=== PATIENT | male | born 1955 | race Caucasian/White ===

== ENCOUNTER → 2017-01-18 | Outpatient (CLI) | payer BC | LOC: MW.CHRC 15:20 | PROVIDERS: ATTEND Family Medicine | DX: Z00.00 Encounter for general adult medical examination without abnormal findings (principal) | CPT/HCPCS: 87070; 87077; 87186; 93005 ==

== ENCOUNTER 2017-02-11 16:41 | Emergency (ER) | payer BC ==
[2017-02-11] MEDS ORDERED: Sodium Chloride 0.9% 10 ML Syringe FLUSH PRN (17:04)
[2017-02-11] MEDS ORDERED: Sodium Chloride 0.9% 2.5 ML Syringe FLUSH PRN (17:04)
--- NOTE | 2017-02-11 17:18 | EDM.PDOC ---
ED HISTORY OF PRESENT ILLNESS - General Chief Complaint: Respiratory Problem Stated Complaint: SHORTNESS OF BREATH Time Seen by Provider: 02/11/17 17:07 - History of Present Illness INITIAL COMMENTS - FREE TEXT/NARRATIVE: HISTORY AND PHYSICAL: History of present illness: Patient's 61-year-old white male with an extensive past medical history including prior CVA coronary bypass graft who presents with concern of shortness of breath weakness and near syncope this is been worse over last several days he's been on and off several diuretics and had these recently increased and has a scheduled appointment with cardiology tomorrow this episode today was shortness of breath with near syncope while at home without associated chest pain nausea vomiting or other complaints Review of systems: As per history of present illness and below otherwise all systems reviewed and negative. Past medical history: As per history of present illness and as reviewed below otherwise noncontributory. Surgical history: As per history of present illness and as reviewed below otherwise noncontributory. Social history: No reported history of drug or alcohol abuse. Family history: As per history of present illness and as reviewed below otherwise noncontributory. Physical exam: HEENT: Atraumatic, normocephalic, pupils reactive, mild conjunctival pallor without scleral icterus, mucous membranes moist, throat clear, neck supple, nontender, trachea midline. Lungs: Basilar crackles, breath sounds equal bilaterally, chest nontender. Heart: S1S2, regular, negative for clicks, rubs, or JVD. Abdomen: Soft, nondistended, nontender. Negative for masses or hepatosplenomegaly. Negative for costovertebral tenderness. Pelvis: Stable nontender. Genitourinary: Deferred. Rectal: Deferred. Extremities: Atraumatic, negative for cords or calf pain. Neurovascular unremarkable. 2-3+ peripheral edema inferiorly Neuro: Awake, alert, oriented. Cranial nerves II through XII unremarkable. Cerebellum unremarkable. Motor and sensory unremarkable throughout. Exam nonfocal. Diagnostics: CBC CMP PT/INR troponin BNP EKG chest x-ray CT brain Therapeutics: IV O2 monitor Impression: #1 dyspnea #2 history coronary bypass graft #3 history of CVA #4 near syncope Definitive disposition and diagnosis as appropriate pending reevaluation and review of above. - Related Data Allergies/ADRs: Allergies Allergy/AdvReac Type Severity Reaction Status Date / Time No Known Allergies Allergy Verified 02/11/17 17:23 Home Meds: Home Meds Lisinopril [Prinivil] 10 mg PO DAILY 30 Days 12/14/16 [Rx] Rosuvastatin [Crestor] 10 mg PO BEDTIME 30 Days 12/14/16 [Rx] Amiodarone [Cordarone] 400 mg PO DAILY 02/11/17 [History] Furosemide 40 mg PO DAILY 02/11/17 [History] Metoprolol Tartrate 12.5 mg PO DAILY 02/11/17 [History] Mirtazapine 15 mg PO BEDTIME 02/11/17 [History] NIFEdipine [Nifedipine ER] 60 mg PO ACBREAKFAST 02/11/17 [History] Rivaroxaban [Xarelto] 20 mg PO DAILY 02/11/17 [History] Past Medical History HEENT History: Reports: Other (see below) Other HEENT History: Pt reports "my eye exploded roughly 1yr ago." Cardiovascular History: Reports: Hypertension - Infectious Disease History Infectious Disease History: Reports: None - Past Surgical History HEENT Surgical History: Reports: None Cardiovascular Surgical History: Reports: None Social & Family History - Family History Family Medical History: Noncontributory HEENT: Reports: None Cardiac: Reports: [place] Respiratory: Reports: None GI: Reports: None : Reports: None OBGYN: Reports: None Musculoskeletal: Reports: None Neurological: Reports: None Psychiatric: Reports: None Endocrine/Metabolic: Reports: None Hematologic: Reports: None Immunologic: Reports: None Dermatologic: Reports: None Oncologic: Reports: None - Tobacco Use Smoking Status *Q: Never Smoker Second Hand Smoke Exposure: No - Caffeine Use Caffeine Use: Reports: Soda - Recreational Drug Use Recreational Drug Use: No ED ROS GENERAL - Review of Systems Review Of Systems: ROS reveals no pertinent complaints other than HPI. ED EXAM, GENERAL - Physical Exam Exam: See Below (See dictation) Course - Vital Signs Last Recorded V/S: Last Vital Signs Temp 36.3 C 02/11/17 17:00 Pulse 83 02/11/17 17:00 Resp 18 02/11/17 17:00 BP 114/64 02/11/17 17:00 Pulse Ox 97 02/11/17 17:00 - Orders/Labs/Meds Orders: Active Orders 24 hr Category Date Time Status EKG Documentation Completion [RC] STAT Care 02/11/17 17:04 Active Chest 1V Frontal [CR] Stat Exams 02/11/17 17:04 Taken Head wo Cont [CT] Stat Exams 02/11/17 17:13 Taken TYPE AND SCREEN [BBK] Stat Lab 02/11/17 17:45 Received Sodium Chloride 0.9% [Saline Flush] Med 02/11/17 17:04 Active 10 ml FLUSH ASDIRECTED PRN Sodium Chloride 0.9% [Saline Flush] Med 02/11/17 17:04 Active 2.5 ml FLUSH ASDIRECTED PRN Saline Lock Insert [OM.PC] Stat Oth 02/11/17 17:04 Ordered Medication Orders Sodium Chloride (Saline Flush) 10 ml FLUSH ASDIRECTED PRN PRN Reason: Keep Vein Open Sodium Chloride (Saline Flush) 2.5 ml FLUSH ASDIRECTED PRN PRN Reason: Keep Vein Open Labs: Laboratory Tests 02/11/17 02/11/17 02/11/17 Range/Units 17:45 17:45 17:45 WBC 12.87 H (4.0-11.0) K/uL RBC 4.00 L (4.50-5.90) M/uL Hgb 11.3 L (13.0-17.0) g/dL Hct 35.3 L (38.0-50.0) % MCV 88.3 (80.0-98.0) fL MCH 28.3 (27.0-32.0) pg MCHC 32.0 (31.0-37.0) g/dL RDW Std Deviation 51.7 (28.0-62.0) fl RDW Coeff of Tosha 17 H (11.0-15.0) % Plt Count 244 (150-400) K/uL MPV 10.80 (7.40-12.00) fL Neut % (Auto) 79.3 (48.0-80.0) % Lymph % (Auto) 15.8 L (16.0-40.0) % Turner % (Auto) 4.5 (0.0-15.0) % Eos % (Auto) 0.2 (0.0-7.0) % Baso % (Auto) 0.2 (0.0-1.5) % Neut # (Auto) 10.2 H (1.4-5.7) K/uL Lymph # (Auto) 2.0 (0.6-2.4) K/uL Turner # (Auto) 0.6 (0.0-0.8) K/uL Eos # (Auto) 0.0 (0.0-0.7) K/uL Baso # (Auto) 0.0 (0.0-0.1) K/uL Nucleated RBC % 0.0 /100WBC Nucleated RBCs # 0 K/uL INR 1.84 H (0.86-1.11) Sodium 145 (136-146) mmol/L Potassium 4.1 (3.5-5.1) mmol/L Chloride 109 (98-110) mmol/L Carbon Dioxide 22 (21-31) mmol/L BUN 23 (6.0-23.0) mg/dL Creatinine 2.1 H (0.6-1.5) mg/dL Est Cr Clr Drug Dosing 39.84 mL/min Estimated GFR (MDRD) 32.4 ml/min Glucose 151 H (60-110) mg/dL Calcium 9.3 (8.8-10.8) mg/dL Total Bilirubin 0.7 (0.1-1.5) mg/dL AST 15 (5-40) IU/L ALT 24 (8-54) IU/L Alkaline Phosphatase 82 (40-150) Troponin I (0.0-0.29) NG/ML B-Natriuretic Peptide (<100) PG/ML Total Protein 7.2 (6.0-8.0) g/dL Albumin 3.8 (3.4-4.8) g/dL Globulin 3.4 (2.0-3.5) g/dL Albumin/Globulin Ratio 1.1 L (1.3-2.8) 02/11/17 02/11/17 Range/Units 17:45 17:45 WBC (4.0-11.0) K/uL RBC (4.50-5.90) M/uL Hgb (13.0-17.0) g/dL Hct (38.0-50.0) % MCV (80.0-98.0) fL MCH (27.0-32.0) pg MCHC (31.0-37.0) g/dL RDW Std Deviation (28.0-62.0) fl RDW Coeff of Tosha (11.0-15.0) % Plt Count (150-400) K/uL MPV (7.40-12.00) fL Neut % (Auto) (48.0-80.0) % Lymph % (Auto) (16.0-40.0) % Turner % (Auto) (0.0-15.0) % Eos % (Auto) (0.0-7.0) % Baso % (Auto) (0.0-1.5) % Neut # (Auto) (1.4-5.7) K/uL Lymph # (Auto) (0.6-2.4) K/uL Turner # (Auto) (0.0-0.8) K/uL Eos # (Auto) (0.0-0.7) K/uL Baso # (Auto) (0.0-0.1) K/uL Nucleated RBC % /100WBC Nucleated RBCs # K/uL INR (0.86-1.11) Sodium (136-146) mmol/L Potassium (3.5-5.1) mmol/L Chloride (98-110) mmol/L Carbon Dioxide (21-31) mmol/L BUN (6.0-23.0) mg/dL Creatinine (0.6-1.5) mg/dL Est Cr Clr Drug Dosing mL/min Estimated GFR (MDRD) ml/min Glucose (60-110) mg/dL Calcium (8.8-10.8) mg/dL Total Bilirubin (0.1-1.5) mg/dL AST (5-40) IU/L ALT (8-54) IU/L Alkaline Phosphatase (40-150) Troponin I < 0.10 (0.0-0.29) NG/ML B-Natriuretic Peptide 552 H (<100) PG/ML Total Protein (6.0-8.0) g/dL Albumin (3.4-4.8) g/dL Globulin (2.0-3.5) g/dL Albumin/Globulin Ratio (1.3-2.8) Meds: Medications Generic Name Dose Route Start Last Admin Trade Name Freq PRN Reason Stop Dose Admin Sodium Chloride 10 ml 02/11/17 17:04 Saline Flush FLUSH ASDIRECTED PRN Keep Vein Open Sodium Chloride 2.5 ml 02/11/17 17:04 Saline Flush FLUSH ASDIRECTED PRN Keep Vein Open Departure - Departure Time of Disposition: 19:04 Disposition: DC/Tfer to Acute Hospital 02 Condition: fair Clinical Impression: Dyspnea, CVA (cerebral vascular accident), Near syncope Forms: ED Department Discharge - My Orders Last 24 Hours: My Active Orders 02/11/17 17:04 EKG Documentation Completion [RC] STAT Chest 1V Frontal [CR] Stat Sodium Chloride 0.9% [Saline Flush] 10 ml FLUSH ASDIRECTED PRN Sodium Chloride 0.9% [Saline Flush] 2.5 ml FLUSH ASDIRECTED PRN Saline Lock Insert [OM.PC] Stat 02/11/17 17:13 Head wo Cont [CT] Stat 02/11/17 17:45 TYPE AND SCREEN [BBK] Stat - Assessment/Plan Last 24 Hours: My Active Orders 02/11/17 17:04 EKG Documentation Completion [RC] STAT Chest 1V Frontal [CR] Stat Sodium Chloride 0.9% [Saline Flush] 10 ml FLUSH ASDIRECTED PRN Sodium Chloride 0.9% [Saline Flush] 2.5 ml FLUSH ASDIRECTED PRN Saline Lock Insert [OM.PC] Stat 02/11/17 17:13 Head wo Cont [CT] Stat 02/11/17 17:45 TYPE AND SCREEN [BBK] Stat
[2017-02-11] MEDS ORDERED: Furosemide 40 MG/4 ML VIAL IVPUSH ONE (19:05)
[2017-02-11] MEDS ORDERED: Sodium Chloride 0.9% 500 ML IV STA (20:03)
--- NOTE | 2017-02-12 14:56 | CT ---
EXAM DATE: 02/11/17 PATIENT'S AGE: 61 Patient: LILIAN HAUSER Facility: [place], [place] Site . Site : 1955 Study: CT Head [id number]/30/2017 6:17:23 PM Ordering Physician: Riccardo Luciano Final Report: INDICATION: Near syncope TECHNIQUE: CT head without contrast. COMPARISON: 12/11/2016 FINDINGS: The ventricles and sulci are stable. There is no mass effect or midline shift. Chronic lacunar infarcts are again seen. There is a left frontal parrish radiata ovoid hypodensity which was not seen on the prior study, suggestive of an evolving lacunar infarct. Small ill-defined centrum semiovale hypodensities could represent chronic small-vessel ischemic changes. There is no loss of willis- white differentiation. There is no evidence of an acute intracranial hemorrhage. No acute calvarial fracture is seen. The visualized paranasal sinuses and mastoid air cells are clear. The visualized orbits are within normal limits. IMPRESSION: An apparently evolving left frontal parrish radiata lacunar infarct. Multiple additional chronic lacunar infarcts again seen. Subtle centrum semiovale hypodensities could represent chronic small-vessel ischemic changes. If indicated, consider MRI. The findings were discussed with Dr. Gu, by phone, 02/11/2017 at 6:40 p.m.. Dictated by Luis Box MD @ 02/11/2017 6:43:06 PM Dictated by: Luis Box MD @ 02/11/2017 18:43:10 (Electronic Signature) Report Signed by Proxy and Original Signed Document filed in the Medical Record. [facility]
--- NOTE | 2017-02-12 14:59 | CR ---
EXAM DATE: 02/11/17 PATIENT'S AGE: 61 Patient: LILIAN HAUSER Facility: [place], [place] Site . Site : 1955 Study: XRay Chest [id number] 6:22:09 PM Ordering Physician: Riccardo Luciano Final Report: Indication: Shortness of breath. Technique: One view. Comparison: None. Findings: Massive prominence of the cardiac silhouette. Left hemidiaphragm is obscured. Pulmonary vascularity is normal. Right lung is clear. Visualized left lung is clear. Central soft tissue density behind the heart. Impression: Massive cardiomegaly or pericardial effusion. Presumed left pleural effusion. Likely some left atelectasis. Small retrocardiac density likely a hiatus hernia. Two-view chest recommended for further characterization or CT. Dictated by Evangelist Covington MD @ Feb 11 2017 6:56PM (Electronic Signature) Report Signed by Proxy and Original Signed Document filed in the Medical Record. [facility]
[2017-02-12 19:27] VITALS: BP 82/57
== END 2017-02-11 20:25 ==
LOC: MW.ED 16:41
DX: R06.00 Dyspnea, unspecified (principal); R55 Syncope and collapse; I10 Essential (primary) hypertension; Z86.73 Personal history of transient ischemic attack (TIA), and cerebral infarction without residual deficits; Z79.899 Other long term (current) drug therapy
CPT/HCPCS: 36415; 70450; 71010; 80053; 83880; 84484; 85025; 85610; 86850; 86900; 86901; 93005; 96374; 99285; J1940; J7040; 99284

== ENCOUNTER 2017-03-03 16:33 | Emergency (ER) | payer BC ==
[2017-03-03] MEDS ORDERED: HYDROmorphone 2 MG/ML Syringe IVPUSH ONE (16:55)
[2017-03-03] MEDS ORDERED: Sodium Chloride 0.9% 2.5 ML Syringe FLUSH PRN (16:55)
[2017-03-03] MEDS ORDERED: Sodium Chloride 0.9% 10 ML Syringe FLUSH PRN (16:55)
[2017-03-03] MEDS ORDERED: Ondansetron 4 MG/2 ML SDV IVPUSH ONE (16:55)
--- NOTE | 2017-03-03 17:03 | EDM.PDOC ---
ED HPI GENERAL MEDICAL PROBLEM - General Chief Complaint: Abdominal Pain Stated Complaint: HERNIA/RUPTURED Time Seen by Provider: 03/03/17 16:47 - History of Present Illness INITIAL COMMENTS - FREE TEXT/NARRATIVE: HISTORY AND PHYSICAL: History of present illness: The patient is a 61 year-old male with a history of TIAs and strokes who is currently on Coumadin and had an [place] without stent and treated at [facility] for all these problems who presents with a 10 year history of an umbilical hernia which sits at the umbilicus and slightly above which goes in and out over the last 10 years. Patient states that he does not come out every day he comes in periodically and usually lays down and is able to maneuver back into place. He never had the area repaired and does not have a particular reason why it has not been repaired. The patient states that earlier this morning his hernia came out again and he had some difficulty getting it back in but he was able to do so. It came out a second time and he presents to the ED because he was unable to get it back. Patient has not had any fevers chills vomiting diarrhea chest pain or shortness of breath and only has pain around the hernial site. The remainder the abdomen is without pain. The patient states he fell off for longitudinal that contributed to it. The patient is on Coumadin. Review of systems: As per history of present illness and below otherwise all systems reviewed and negative. Past medical history: As per history of present illness and as reviewed below otherwise noncontributory. Surgical history: As per history of present illness and as reviewed below otherwise noncontributory. Social history: No reported history of drug or alcohol abuse. Family history: As per history of present illness and as reviewed below otherwise noncontributory. Physical exam: General: Well-developed well-nourished male who is nontoxic and speaking clearly and easily in ED. Vital signs were noted by me HEENT: Atraumatic, normocephalic, negative for conjunctival pallor or scleral icterus, mucous membranes moist, throat clear, neck supple, nontender, trachea midline. Lungs: Clear to auscultation, breath sounds equal bilaterally, chest nontender. Heart: S1S2, regular, negative for clicks, rubs, or JVD. Abdomen: Soft, nondistended, nontender. Negative for masses or hepatosplenomegaly. Patient has a visible umbilical hernia which extends up early and is approximately the size of a tangerine, it is firm mildly tender and on first pass is not reducible. The surrounding abdomen is without any rebound guarding or tympany Genitourinary: Deferred. Rectal: Deferred. Extremities: Atraumatic, negative for cords or calf pain. Neurovascular unremarkable. Neuro: Awake, alert, oriented. Cranial nerves II through XII unremarkable. Cerebellum unremarkable. Motor and sensory unremarkable throughout. Exam nonfocal. Diagnostics: [] Therapeutics: IV, Dilaudid, Zofran, Trendelenburg 1657: Our surgeon Dr. Peres was notified of this patient in the ED and I will attempt to reduce the hernia after medications were given and he will swing by to check on the patient in the event that I am unsuccessful. 1714: Using just gentle pressure I was able to easily reduce the umbilical hernia without complication ;the patient tolerated the procedure well. I did advise the patient and the that he would need to get some evaluation to get this repaired as going [place] it will continue to occur at some point it will become entrapped. 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 Impression: Umbilical/periumbilical hernia, reduced Definitive disposition and diagnosis as appropriate pending reevaluation and review of above. Abdominal Pain Score (Numeric/FACES): 9 - Related Data Allergies Allergy/AdvReac Type Severity Reaction Status Date / Time No Known Allergies Allergy Verified 03/03/17 16:40 Home Meds: Home Meds Lisinopril [Prinivil] 10 mg PO DAILY 30 Days 12/14/16 [Rx] Rosuvastatin [Crestor] 10 mg PO BEDTIME 30 Days 12/14/16 [Rx] Amiodarone [Cordarone] 400 mg PO DAILY 02/11/17 [History] Furosemide 40 mg PO DAILY 02/11/17 [History] Metoprolol Tartrate 12.5 mg PO DAILY 02/11/17 [History] Mirtazapine 15 mg PO BEDTIME 02/11/17 [History] NIFEdipine [Nifedipine ER] 60 mg PO ACBREAKFAST 02/11/17 [History] Rivaroxaban [Xarelto] 20 mg PO DAILY 02/11/17 [History] Past Medical History HEENT History: Reports: Other (see below) Other HEENT History: Pt reports "my eye exploded roughly 1yr ago." Cardiovascular History: Reports: Afib, Blood clots/VTE/DVT, Bypass, High cholesterol, Hypertension Respiratory History: Reports: None Genitourinary History: Reports: None Musculoskeletal History: Reports: None Neurological History: Reports: CVA Psychiatric History: Reports: None Endocrine/Metabolic History: Reports: Obesity/BMI 30+ Hematologic History: Reports: Iron deficiency Immunologic History: Reports: None Oncologic (Cancer) History: Reports: None Dermatologic History: Reports: None - Infectious Disease History Infectious Disease History: Reports: None - Past Surgical History Head Surgeries/Procedures: Reports: None HEENT Surgical History: Reports: None Cardiovascular Surgical History: Reports: None, Coronary artery bypass GI Surgical History: Reports: Hernia, abdominal Social & Family History - Family History Family Medical History: Noncontributory HEENT: Reports: None Cardiac: Reports: [place] Respiratory: Reports: None GI: Reports: None : Reports: None OBGYN: Reports: None Musculoskeletal: Reports: None Neurological: Reports: None Psychiatric: Reports: None Endocrine/Metabolic: Reports: None Hematologic: Reports: None Immunologic: Reports: None Dermatologic: Reports: None Oncologic: Reports: None - Tobacco Use Smoking Status *Q: Former Smoker Used Tobacco, but Quit: Yes Month Tobacco Last Used: Nov 2016 Second Hand Smoke Exposure: No - Caffeine Use Caffeine Use: Reports: None - Recreational Drug Use Recreational Drug Use: No ED ROS GENERAL - Review of Systems Review Of Systems: ROS reveals no pertinent complaints other than HPI. ED EXAM, GENERAL - Physical Exam Exam: See Below (See dictation) Course - Vital Signs Last Recorded V/S: Last Vital Signs Temp 36.2 C 03/03/17 16:40 Pulse 68 03/03/17 16:40 Resp 20 03/03/17 16:40 BP 144/86 H 03/03/17 16:40 Pulse Ox 98 03/03/17 16:40 - Orders/Labs/Meds Orders: Active Orders 24 hr Category Date Time Status Sodium Chloride 0.9% [Saline Flush] Med 03/03/17 16:55 Active 10 ml FLUSH ASDIRECTED PRN Sodium Chloride 0.9% [Saline Flush] Med 03/03/17 16:55 Active 2.5 ml FLUSH ASDIRECTED PRN Saline Lock Insert [OM.PC] Stat Oth 03/03/17 16:55 Ordered Medication Orders Sodium Chloride (Saline Flush) 10 ml FLUSH ASDIRECTED PRN PRN Reason: Keep Vein Open Sodium Chloride (Saline Flush) 2.5 ml FLUSH ASDIRECTED PRN PRN Reason: Keep Vein Open Meds: Medications Generic Name Dose Route Start Last Admin Trade Name Freq PRN Reason Stop Dose Admin Sodium Chloride 10 ml 03/03/17 16:55 Saline Flush FLUSH ASDIRECTED PRN Keep Vein Open Sodium Chloride 2.5 ml 03/03/17 16:55 Saline Flush FLUSH ASDIRECTED PRN Keep Vein Open Discontinued Medications Generic Name Dose Route Start Last Admin Trade Name Freq PRN Reason Stop Dose Admin Hydromorphone HCl 1 mg 03/03/17 16:55 03/03/17 17:06 Dilaudid IVPUSH 03/03/17 16:56 1 mg ONETIME ONE Administration Ondansetron HCl 4 mg 03/03/17 16:55 03/03/17 17:06 Zofran IVPUSH 03/03/17 16:56 4 mg ONETIME ONE Administration Departure - Departure Time of Disposition: 17:19 Disposition: Home, Self-Care 01 Condition: good Clinical Impression: Periumbilical hernia Forms: ED Department Discharge Additional Instructions: The following information is given to patients seen in the emergency department who are being discharged to home. This information is to outline your options for follow-up care. We provide all patients seen in our emergency department with a follow-up referral. The need for follow-up, as well as the timing and circumstances, are variable depending upon the specifics of your emergency department visit. If you don't have a primary care physician on staff, we will provide you with a referral. We always advise you to contact your personal physician following an emergency department visit to inform them of the circumstance of the visit and for follow-up with them and/or the need for any referrals to a consulting specialist. The emergency department will also refer you to a specialist when appropriate. This referral assures that you have the opportunity for followup care with a specialist. All of these measure are taken in an effort to provide you with optimal care, which includes your followup. Under all circumstances we always encourage you to contact your private physician who remains a resource for coordinating your care. When calling for followup care, please make the office aware that this follow-up is from your recent emergency room visit. If for any reason you are refused follow-up, please contact the [facility] emergency department at and ask to speak to the emergency department charge nurse. [facility] Specialty Care-General Surgery Professional Building [address] [place] [address] [address] [place] [address] [facility] Primary care- Internal Medicine and [facility] [address] [place] [address] Please continue all your home medications as previously and return to ER as needed and as discussed. Please schedule followup appointment with one of our surgeons to discuss this hernia and its repair in the future. - My Orders Last 24 Hours: My Active Orders 03/03/17 16:55 Sodium Chloride 0.9% [Saline Flush] 10 ml FLUSH ASDIRECTED PRN Sodium Chloride 0.9% [Saline Flush] 2.5 ml FLUSH ASDIRECTED PRN Saline Lock Insert [OM.PC] Stat - Assessment/Plan Last 24 Hours: My Active Orders 03/03/17 16:55 Sodium Chloride 0.9% [Saline Flush] 10 ml FLUSH ASDIRECTED PRN Sodium Chloride 0.9% [Saline Flush] 2.5 ml FLUSH ASDIRECTED PRN Saline Lock Insert [OM.PC] Stat
[2017-03-03 18:12] VITALS: BP 141/74
== END 2017-03-03 17:43 | disposition home or self-care (01) ==
LOC: MW.ED 16:33
DX: K42.9 Umbilical hernia without obstruction or gangrene (principal); I10 Essential (primary) hypertension; E78.00 Pure hypercholesterolemia, unspecified; E66.9 Obesity, unspecified; Z86.73 Personal history of transient ischemic attack (TIA), and cerebral infarction without residual deficits; Z95.1 Presence of aortocoronary bypass graft; Z79.899 Other long term (current) drug therapy; Z98.890 Other specified postprocedural states; Z87.891 Personal history of nicotine dependence; Z68.30 Body mass index [BMI] 30.0-30.9, adult
CPT/HCPCS: 96374; 96375; 99283; J1170; J2405; 99284

== ENCOUNTER 2022-09-20 06:27 | Emergency (ER) | payer BC, MEDICARE ==
[2022-09-20] MEDS ORDERED: Ondansetron 4 MG/2 ML SDV IVPUSH ONE (07:04)
[2022-09-20] MEDS ORDERED: Lactated Ringers 1,000 ML IV STA (07:05)
[2022-09-20 07:24] LABS: CARBON DIOXIDE,CO2 28.4 mmol/L (21.0-32.0); POTASSIUM,K 4.3 mmol/L (3.5-5.1)
[2022-09-20] MEDS ORDERED: Iopamidol 755 Mg/ML 100 ML Bottle IVPUSH ONE (08:14)
[2022-09-20 09:40] VITALS: BP 174/85; PULSE 51
== END 2022-09-20 09:38 | disposition home or self-care (01) ==
LOC: MW.ED 06:27
DX: K42.9 Umbilical hernia without obstruction or gangrene (principal); I48.91 Unspecified atrial fibrillation; I10 Essential (primary) hypertension; E78.00 Pure hypercholesterolemia, unspecified; E66.9 Obesity, unspecified; Z68.33 Body mass index [BMI] 33.0-33.9, adult; Z95.1 Presence of aortocoronary bypass graft; Z79.899 Other long term (current) drug therapy; Z79.01 Long term (current) use of anticoagulants
CPT/HCPCS: 36415; 74177; 80053; 83690; 83735; 84484; 85025; 93005; 96360; 99284; J7120; Q9967